=== PATIENT | male | born 1930 | race Caucasian/White ===

== ENCOUNTER 2017-12-13 09:27 | Outpatient (CLI) | payer MEDICARE ==
[2017-12-13] VITALS (8 sets, daily range): BP systolic 106–162; BP diastolic 67–90; PULSE 59–69; TEMP 97.8–98
[~2017-12-13] VITALS: Ht 175.4 cm; Wt 73.8 kg
[2017-12-13 10:00] LABS: HEMATOCRIT 38.4 % (42.0-52.0); HEMOGLOBIN 12.4 g/dl (13.5-18.0); MEAN CELL VOLUME 89 fl (80.0-100.0); MEAN CORPUSCULAR HEMOGLOBIN 29 pg (27.0-31.0); MEAN CORPUSCULAR HGB CONC 32 g/dl (33.0-37.0); MEAN PLATELET VOLUME 10.3 fl (7.4-10.4); PLATELET COUNT 235 K/mm3 (130-400); RED BLOOD COUNT 4.33 M/mm3 (4.20-5.60); REDCELL DISTRIBUTION WIDTH-CV 14.4 % (11.5-14.5)
[2017-12-13 10:09] LABS: INR 1.1 (0.8-3.0); PROTHROMBIN TIME 12.2 SECONDS (9.7-12.8)
[2017-12-13] MEDS ORDERED: ALDACTONE 25MG25 M1 PO (10:14)
[2017-12-13] MEDS ORDERED: XANAX 0.5MG0.5 MG PO (10:15)
[2017-12-13] MEDS ORDERED: LASIX 40MG TABL40 MG PO (10:16)
[2017-12-13] MEDS ORDERED: COREG12.5 MG PO (10:16)
[2017-12-13] MEDS ORDERED: PRINIVIL10 MG PO (10:17)
[2017-12-13 10:18] LABS: CALCIUM 9.7 mg/dL (8.4-10.2); CREATININE, serum 1.46 mg/dL (0.66-1.25); POTASSIUM 4.8 mmol/L (3.4-5.0)
[2017-12-13] MEDS ORDERED: HYTRIN 5MG C5 MG/CAP PO (10:18)
[2017-12-13] MEDS ORDERED: LEXAPRO 5MG5 MG PO (10:19)
[2017-12-13] MEDS ORDERED: PRAVACHOL 20MG20 MG PO (10:19)
[2017-12-13] MEDS ORDERED: ASPIRIN E.C. 8181 MG PO (10:20)
[2017-12-13] MEDS ORDERED: PLAVIX 75MG TAB75 MG PO (10:20)
[2017-12-13] MEDS ORDERED: ULTRAM 50MG TAB50 MG PO (10:20)
[2017-12-13] MEDS ORDERED: MASON NATURAL1200 MG PO (10:21)
[2017-12-13] MEDS ORDERED: THE MEDICINE S200 M2 PO (10:21)
[2017-12-13] MEDS ORDERED: VITAMIN B COMPL1 SGL PO (10:22)
[2017-12-13] MEDS ORDERED: MULTIPLE VITAMI1 CAP PO (10:23)
[2017-12-13] MEDS ORDERED: NATURAL E400 IU PO (10:23)
[2017-12-13] MEDS ORDERED: RESTASIS 60VL OU (10:24)
[2017-12-13] MEDS ORDERED: CEPHALEXIN500 M1 PO (12:46)
== END 2017-12-13 15:50 | disposition home or self-care (01) ==
LOC: COL.RAD 09:27
PROVIDERS: Internal Medicine Cardiovascular Disease
DX: I08.0 Rheumatic disorders of both mitral and aortic valves (principal); I63.9 Cerebral infarction, unspecified; I25.10 Atherosclerotic heart disease of native coronary artery without angina pectoris; Z86.79 Personal history of other diseases of the circulatory system; Z95.1 Presence of aortocoronary bypass graft
CPT/HCPCS: C1764; J2250; J3010